=== PATIENT | female | born 1955 | race Caucasian/White ===

== ENCOUNTER 2017-07-28 14:34 | Emergency (ER) | payer OTHER ==
[~2017-07-28] VITALS: Ht 170.2 cm; Wt 78.0 kg
[2017-07-28 15:46] VITALS: BP 151/97
--- NOTE | 2017-07-28 16:16 | RAD ---
Right shoulder, 3 views, 07/28/2017: History: Fall, injury No fracture or dislocation is identified. The periarticular soft tissues are unremarkable. IMPRESSION: No acute right shoulder abnormality is detected.
[2017-07-28] MEDS ORDERED: CYCLOBENZAPRINE 10 MG TABLET. PO ONE (17:00)
[2017-07-28] MEDS ORDERED: DEXAMETHASONE SOD PHOS 20 MG/5 ML VIAL. IM ONE (17:00)
[2017-07-28] MEDS ORDERED: KETOROLAC 60 MG/2 ML INJ. IM ONE (17:00)
--- NOTE | 2017-07-28 17:00 | PHYS DOC ---
Past Medical History Past Medical History: Hypertension, Hypothyroid Past Surgical History: Tubal ligation Additional Information: vapes Alcohol Use: None Drug Use: None Adult General Chief Complaint Chief Complaint: UPPER EXTREMITY INJURY HPI HPI Patient is a 62 year old female with history of hypertension, hypothyroidism, who presents with moderate right shoulder pain that began a week ago after she fell at work. Patient denies any loss of consciousness when she fell. She states she was seen at a work clinic today and they did x-rays and told her, her right shoulder was dislocated, she states she was sent to the ED. Review of Systems Review of Systems Constitutional: Denies fever or chills [] Musculoskeletal: Right shoulder pain Integument: Denies rash or skin lesions [] Neurologic: Denies headache, focal weakness or sensory changes [] Current Medications Current Medications Current Medications Medications (Trade) Dose Ordered Sig/Melissa Start Time Stop Time Status Last Admin Dose Admin Cyclobenzaprine HCl (Flexeril) 10 mg 1X ONCE 07/28/17 17:00 07/28/17 17:01 DC 07/28/17 17:23 10 MG Dexamethasone Sodium Phosphate (Decadron) 10 mg 1X ONCE 07/28/17 17:00 07/28/17 17:01 DC 07/28/17 17:20 10 MG Ketorolac Tromethamine (Toradol Im) 60 mg 1X ONCE 07/28/17 17:00 07/28/17 17:01 DC 07/28/17 17:22 60 MG Allergies Allergies Allergies Coded Allergies Type Severity Reaction Last Updated Verified No Known Drug Allergies 07/28/17 No Physical Exam Physical Exam Constitutional: Well developed, well nourished, no acute distress, non-toxic appearance. [] Skin: Warm, dry, no erythema, no rash. [] Back: No tenderness, no CVA tenderness. [] Extremities: Right shoulder with no obvious deformity. Tenderness diffusely on the right shoulder ACM joint as well as the right lateral shoulder. Slightly Limited range of motion to the right shoulder especially abduction past 30. Adequate plantar flexion and flexion of the right forearm. +2 right radial pulse. Cap refill less than 2 seconds the right fingers. Adequate radial medial and ulnar sensation to the right forearm. Neurologic: Alert and oriented X 3, normal motor function, normal sensory function, no focal deficits noted. [] Psychologic: Affect normal, judgement normal, mood normal. [] Current Patient Data Vital Signs Vital Signs Date Time Temp Pulse Resp B/P (MAP) Pulse Ox O2 Delivery O2 Flow Rate FiO2 07/28/17 15:46 98.5 76 18 151/97 (115) 97 Room Air 98.5 EKG EKG [] Radiology/Procedures Radiology/Procedures []PROCEDURE: SHOULDER 2+V RIGHT Right shoulder, 3 views, 07/28/2017: History: Fall, injury No fracture or dislocation is identified. The periarticular soft tissues are unremarkable. IMPRESSION: No acute right shoulder abnormality is detected. DICTATED and SIGNED BY: DHAVAL HAWKINS MD DATE: 07/28/17 161 CC: VICKY CHUN APRN ~ Course & Med Decision Making Course & Med Decision Making Pertinent Labs and Imaging studies reviewed. (See chart for details) Patient is in the ED with complaints of right shoulder pain for one week, she states she had an x-ray done today at work clinic and they told her she has a dislocated shoulder. Right shoulder x-rays interpreted by radiologist were negative for any acute findings. There is no obvious sign of shoulder dislocation on patient. She was provided a sling in the ED and encouraged to take the right shoulder through full range of motion several times an hour. She was discharged with Medrol Dosepak, Tylenol 3 and naproxen. She has an appointment with her orthopedic doctor on Monday next week. Dragon Disclaimer Dragon Disclaimer This electronic medical record was generated, in whole or in part, using a voice recognition dictation system. Departure Departure Impression: Primary Impression: Contusion of right shoulder Additional Impression: Fall from standing Disposition: HOME, SELF-CARE Condition: STABLE Referrals: QASIM ALEJANDRA MD follow up with your doctor as scheduled on Monday. Patient Instructions: Contusion, Fall Prevention and Home Safety Additional Instructions: You were seen with right shoulder contusion, your right shoulder x-rays interpreted by radiologist were negative for any acute findings. Ice elevate the extremity. Wear the sling provided as tolerated. Remove the right upper extremity from the sling every hour while awake and take it through full range of motion to prevent frozen shoulder. Scripts Methocarbamol (ROBAXIN) 500 Mg Tablet 1 TAB PO TID, #20 TAB Prov: VICKY CHUN APRN 07/28/17 Naproxen (NAPROXEN) 500 Mg Tablet.dr 1 TAB PO BID, #30 TAB 0 Refills Prov: VICKY CHUN OSCAR 07/28/17 Acetaminophen With Codeine (TYLENOL WITH CODEINE #3 TABLET) 1 Each Tablet 1 TAB PO PRN Q6HRS Y for PAIN, #30 TAB Prov: VICKY CHUN OSCAR 07/28/17 Methylprednisolone (MEDROL) 4 Mg Tab.ds.pk 1 PKG PO UD, #1 PKG Prov: VICKY CHUN OSCAR 07/28/17 Problem Qualifiers Primary Impression: Contusion of right shoulder Encounter type: initial encounter Qualified Codes: S40.011A - Contusion of right shoulder, initial encounter Additional Impression: Fall from standing Encounter type: initial encounter Qualified Codes: W19.XXXA - Unspecified fall, initial encounter VICKY CHUN OSCAR Jul 28, 2017 17:00
[2017-07-28] MEDS ORDERED: METH4TAB2 PO (17:13)
[2017-07-28] MEDS ORDERED: ACET-704 PO (17:13)
[2017-07-28] MEDS ORDERED: NAPR500T8 PO (17:13)
[2017-07-28] MEDS ORDERED: METH-37 PO (17:37)
== END 2017-07-28 18:20 | disposition home or self-care (01) ==
LOC: ER 14:34
DX: S40.011A Contusion of right shoulder, initial encounter (principal); I10 Essential (primary) hypertension; E03.9 Hypothyroidism, unspecified; W18.39XA Other fall on same level, initial encounter; Y93.89 Activity, other specified; Y99.0 Civilian activity done for income or pay; Y92.69 Other specified industrial and construction area as the place of occurrence of the external cause
CPT/HCPCS: 73030; 96372; 99284; J1100; J1885